=== PATIENT | male | born 1985 | race Two or more races ===

== ENCOUNTER 2024-03-03 12:25 | Emergency (ER) | payer OTHER ==
[~2024-03-03] VITALS: Ht 182.9 cm; Wt 81.1 kg
[2024-03-03 13:17] VITALS: BP 148/88; PULSE 78; RESP 17; TEMP 97.2; O2SAT 99
[2024-03-03] MEDS: TETANUS-DIPTH-ACEL PERTUSSIS 0.5ML SYR Tdap IM ONE (13:29)
== END 2024-03-03 13:52 | disposition home or self-care (01) ==
LOC: ER 12:25
DX: S91.331A Puncture wound without foreign body, right foot, initial encounter (principal); X58.XXXA Exposure to other specified factors, initial encounter; Y93.89 Activity, other specified; Y92.89 Other specified places as the place of occurrence of the external cause; Y99.8 Other external cause status
CPT/HCPCS: 90471; 90715